=== PATIENT | male | born 1970 | race Caucasian/White ===

== ENCOUNTER 2020-05-18 00:39 | Emergency (ER) | payer OTHER ==
[~2020-05-18] VITALS: Ht 188 cm; Wt 87.0 kg
[2020-05-18] MEDS ORDERED: SODIUM CHLORIDE 0.9% 1,000 ML IV ONE (01:15)
[2020-05-18 01:37] LABS: BASOPHILS % 0.6 % (0.0-2.0); EOSINOPHILS % 2.3 % (0.0-5.0); HEMATOCRIT. 40.5 % (42.0-52.0); HEMOGLOBIN. 13.2 g/dL (14.0-18.0); LYMPHOCYTES % 10.8 % (20.0-50.0); MEAN CORPUSCULAR HEMOGLOBIN 25.5 pg (28.0-32.0); MEAN CORPUSCULAR VOLUME 78.3 fL (80.0-94.0); MEAN PLATELET VOLUME 8.7 fl (7.4-10.4); MONOCYTES % 7.7 % (2.0-8.0); NEUTROPHILS % 78.6 % (40.0-76.0); PLATELET 195 x1000/uL (130-400); RED BLOOD CELL COUNT 5.17 mill/uL (4.7-6.1); RED CELL DISTRIBUTION WIDTH 16.9 % (11.6-14.6)
[2020-05-18 01:41] LABS: CHLORIDE 100 mEq/L (98-107)
[2020-05-18 01:47] LABS: ETHANOL BLOOD < 10 mg/dL
[2020-05-18 04:22] VITALS: BP 112/73
== END 2020-05-18 04:28 | disposition home or self-care (01) ==
LOC: ER 00:39
DX: T40.2X1A Poisoning by other opioids, accidental (unintentional), initial encounter (principal); I49.9 Cardiac arrhythmia, unspecified; Y92.89 Other specified places as the place of occurrence of the external cause
CPT/HCPCS: 36415; 80053; 80307; 80320; 80329; 82140; 83605; 85025; 93005; 96360; 96361; 99284; J7030; G0480